=== PATIENT | male | born 1975 | race Caucasian/White ===

== ENCOUNTER 2023-04-29 07:01 | Day surgery (SDC) | payer OTHER ==
[2023-04-29] VITALS (10 sets, daily range): BP systolic 95–117; BP diastolic 64–83; PULSE 60–80; TEMP 98
[~2023-04-29] VITALS: Ht 170.2 cm; Wt 62.9 kg
[2023-04-29 08:29] LABS: BASO % 0.5 % (0.0-2.0); EOS # 0.3 K/mm3 (0.0-0.7); GRAN # 4.8 K/mm3 (1.4-6.5); GRAN % 63.4 % (42.2-75.2); HEMOGLOBIN 15.7 g/dl (13.5-18.0); LYMPH # 1.8 K/mm3 (1.2-3.4); LYMPH % 23.6 % (20.0-51.0); MEAN CELL VOLUME 93 fl (80.0-100.0); MEAN CORPUSCULAR HEMOGLOBIN 33 pg (27-31); MEAN CORPUSCULAR HGB CONC 36 g/dl (33.0-37.0); MONO # 0.6 K/mm3 (0.1-0.6); MONO % 8.2 % (1.7-9.3); PLATELET COUNT 297 K/mm3 (130-400); RED BLOOD COUNT 4.75 M/mm3 (4.20-5.60); REDCELL DISTRIBUTION WIDTH-CV 11.9 % (11.5-14.5)
[2023-04-29 08:31] LABS: PROTHROMBIN TIME 11.2 SECONDS (9.7-12.8)
[2023-04-29 08:33] LABS: PARTIAL THROMBOPLASTIN TIME 32.4 SECONDS (26.0-37.0)
[2023-04-29 08:37] LABS: CALCIUM 9.1 mg/dL (8.4-10.2); CREATININE, serum 0.85 mg/dL (0.72-1.25); POTASSIUM 4.9 mmol/L (3.5-4.5)
--- NOTE | 2023-04-29 09:30 | NUR ---
SEE MERGE DOCUMENTATION FOR PROCEDURE LOG INCLUDING VITALS.
[2023-04-29] MEDS ORDERED: ASPIRIN 81M81 MG/TA2 PO (11:40)
[2023-04-29] MEDS ORDERED: CRESTOR20 MG PO (11:41)
--- NOTE | 2023-04-29 13:31 | NUR ---
Pt ambulated to [facility] accompanied by friend. Pt is scheduled for a [facility]. IV started by Ethan MUÑIZ wrist 22. Labs drawn. EKG done. Meds and HX reviewed with the pt. Consent form for the [facility] signed. Pt was taken to lab pack chemist for the procedure. Post-procedure the pt was brought back to [facility] to recover. Pt was offered something to eat and drink. Accepted a Coffee and ordered a meal. During the recovery the right radial wrist site was clean, dry, and intact. Pt was bedrest for 2 hrs, and at the start of hr 3 air was released from the radial band, 2 mls about every 15 minutes. No bleeding present once all the air was released. Pt was given discharge education and information. No questions at the time. Before leaving the right radial site was checked again, clean, dry, and intact. Pt then exited the unit by wheelchair to friends car.
== END 2023-04-29 13:25 | disposition home or self-care (01) ==
LOC: COL.CAR 07:01
PROVIDERS: Internal Medicine Cardiovascular Disease
DX: E78.5 Hyperlipidemia, unspecified (principal); R94.39 Abnormal result of other cardiovascular function study; F17.210 Nicotine dependence, cigarettes, uncomplicated; Z82.49 Family history of ischemic heart disease and other diseases of the circulatory system
CPT/HCPCS: J1644; J2250; J3010; Q9967